=== PATIENT | female | born 2000 | race Caucasian/White ===

== ENCOUNTER 2019-02-28 20:27 | Emergency (ER) | payer SELFPAY | END 2019-02-28 20:59 | disposition left against medical advice (07) | LOC: ED 20:27 | DX: F41.9 Anxiety disorder, unspecified (principal); Z53.21 Procedure and treatment not carried out due to patient leaving prior to being seen by health care provider ==

== ENCOUNTER 2019-03-27 13:57 | Emergency (ER) | payer OTHER ==
--- NOTE | 2019-03-27 14:25 | Emergency Department Report ---
Blank Doc - Documentation Documentation: this is a 18-year-old female that presents with n/v. Stated is 13 weeks pregn ant. This initial assessment/diagnostic orders/clinical plan/treatment(s) is/are subject to change based on patient's health status, clinical progression and re- assessment by fellow clinical providers in the ED. Further treatment and workup at subsequent clinical providers discretion. Patient/guardians urged not to elope from the ED as their condition may be serious if not clinically assessed a nd managed. Initial orders include: 1- Patient sent to [facility] for further evaluation and treatment 2- labs
[2019-03-27] MEDS ORDERED: ZOFRAN ODT PO ONE (14:30)
--- NOTE | 2019-03-27 15:10 | Emergency Department Report ---
HPI - General Chief Complaint: Nausea/Vomiting/Diarrhea Time Seen by Provider: 03/27/19 14:23 - HPI HPI: Pt is a 18 yo G1 who comes to ER for recheck for her . She follows at [place] and saw the OB earlier this week. Every thing was fine per pt x she was treated for BV with flagyl x 1 dose. LMP 3-15-19. she has no abd pain and no vag bleeding. She has had intermittent nausea through the . Pre preg weight 120 and now 125. She ED Past Medical Hx - Past Medical History Previous Medical History?: No - Surgical History Past Surgical History?: No - Family History Family history: no significant - Social History Smoking Status: Never Smoker Substance Use Type: None - Medications Home Medications: Home Medications Medication Instructions Recorded Confirmed Last Taken Type Nitrofurantoin Campbell/M-Cryst 100 mg PO Q12HR #20 capsule 03/27/19 Unknown Rx [Macrobid CAP] Ondansetron [Zofran Odt] 4 mg PO Q8HR PRN #10 tab.rapdis 03/27/19 Unknown Rx ED Review of Systems ROS: Stated complaint: 13WKS /N/V Other details as noted in HPI Comment: All other systems reviewed and negative Physical Exam - Physical Exam Vital Signs: Vital Signs 03/27/19 14:23 Temperature 98.5 F Pulse Rate 95 H Respiratory 16 Rate Blood Pressure 106/60 [Left] O2 Sat by Pulse 98 Oximetry Physical Exam: WDWN patient in NAD VS per RN flow sheet Alert and oriented to person, place and time. S1-S2. No S3 or S4. No systolic or diastolic murmur. No JVD. No pitting edema. Lungs clear to auscultation bilaterally anteriorly and posteriorly. Abdomen soft nontender bowel sounds x5 Moves all extremities well. Mood and affect appropriate. ED Course Vital Signs 03/27/19 14:23 Temperature 98.5 F Pulse Rate 95 H Respiratory 16 Rate Blood Pressure 106/60 [Left] O2 Sat by Pulse 98 Oximetry ED Medical Decision Making - Lab Data Result diagrams: 03/27/19 15:00 03/27/19 17:02 - Radiology Data Radiology results: report reviewed, image reviewed - Medical Decision Making Lab Results 03/27/19 03/27/19 03/27/19 Range/Units 15:00 15:00 Unknown WBC 6.4 (4.5-11.0) K/mm3 RBC 3.88 (3.65-5.03) M/mm3 Hgb 11.3 (10.1-14.3) gm/dl Hct 34.1 (30.3-42.9) % MCV 88 (79-97) fl MCH 29 (28-32) pg MCHC 33 (30-34) % RDW 12.9 L (13.2-15.2) % Plt Count 220 (140-440) K/mm3 Lymph % (Auto) 28.0 (13.4-35.0) % Campbell % (Auto) 5.3 (0.0-7.3) % Eos % (Auto) 1.3 (0.0-4.3) % Baso % (Auto) 0.4 (0.0-1.8) % Lymph # 1.8 (1.2-5.4) K/mm3 Campbell # 0.3 (0.0-0.8) K/mm3 Eos # 0.1 (0.0-0.4) K/mm3 Baso # 0.0 (0.0-0.1) K/mm3 Seg Neutrophils % 65.0 (40.0-70.0) % Seg Neutrophils # 4.2 (1.8-7.7) K/mm3 Sodium 136 L (137-145) mmol/L Potassium 3.6 (3.6-5.0) mmol/L Chloride 103.7 (98-107) mmol/L Carbon Dioxide 22 (22-30) mmol/L Anion Gap 14 mmol/L BUN 6 L (7-17) mg/dL Creatinine 0.6 L (0.7-1.2) mg/dL Estimated GFR > 60 ml/min BUN/Creatinine Ratio 10 % Glucose 74 (65-100) mg/dL Urine Color Yellow (Yellow) Urine Turbidity Cloudy (Clear) Urine pH 7.0 (5.0-7.0) Ur Specific Dixon 1.012 (1.003-1.030) Urine Protein <15 mg/dl (Negative) mg/dL Urine Glucose (UA) Neg (Negative) mg/dL Urine Ketones Neg (Negative) mg/dL Urine Blood Neg (Negative) Urine Nitrite Neg (Negative) Urine Bilirubin Neg (Negative) Urine Urobilinogen < 2.0 (<2.0) mg/dL Ur Leukocyte Esterase Mod (Negative) Urine WBC (Auto) 25.0 H (0.0-6.0) /HPF Urine RBC (Auto) 16.0 (0.0-6.0) /HPF U Epithel Cells (Auto) 47.0 H (0-13.0) /HPF Vital Signs 03/27/19 14:23 Temperature 98.5 F Pulse Rate 95 H Respiratory 16 Rate Blood Pressure 106/60 [Left] O2 Sat by Pulse 98 Oximetry zofran odt taking po ambulatory VSS no abd pain no vag bleeding no cva tenderness has seen obgyn at [place] discussed Ca with MyOBGYN- no sign. Ca not signficant. DC home with dc plan of care and obgyn follow up. VSS. taking PO. no vomiting while in ER. ambulatory and not toxic on dc Critical care attestation.: If time is entered above; I have spent that time in minutes in the direct care of this critically ill patient, excluding procedure time. ED Disposition Clinical Impression: , Nausea & vomiting Disposition: DC-01 TO HOME OR SELFCARE Is pt being admited?: No Does the pt Need Aspirin: No Condition: Stable Instructions: (ED), Hyperemesis Gravidarum (ED) Additional Instructions: REST HYDRATE WELL MED ORDERED TODAY ALL LABS NORMAL TODAY TAKE YOUR DAILY VITAMIN FOLLOW UP WITH OBGYN WHO WILL MONITOR THE GROWTH OF THE BABY AND YOURSELF OVER THE - THIS IS WHY YOU NEED TO SEE ONE MD TO DO THIS. DIET TOLERATED ACTIVITY TOLERATED Prescriptions: Nitrofurantoin Campbell/M-Cryst [Macrobid CAP] 100 mg PO Q12HR #20 capsule Ondansetron [Zofran Odt] 4 mg PO Q8HR PRN #10 tab.rapdis PRN Reason: Vomiting Referrals: ZOHRA DIAS MD [Staff Physician] - 3-5 Days Time of Disposition: 15:42
[2019-03-27 15:14] LABS: Basophils % (Auto) 0.4 % (0.0-1.8); Eosinophils # (Auto) 0.1 K/mm3 (0.0-0.4); Eosinophils % (Auto) 1.3 % (0.0-4.3); Hematocrit 34.1 % (30.3-42.9); Hemoglobin 11.3 gm/dl (10.1-14.3); Lymphocytes # (Auto) 1.8 K/mm3 (1.2-5.4); Mean Corpuscular HGB Conc 33 % (30-34); Mean Corpuscular Volume 88 fl (79-97); Monocytes # (Auto) 0.3 K/mm3 (0.0-0.8); Monocytes % (Auto) 5.3 % (0.0-7.3); Platelet Count 220 K/mm3 (140-440); Red Blood Count 3.88 M/mm3 (3.65-5.03); Red Cell Distribution Width 12.9 % (13.2-15.2)
[2019-03-27 15:22] LABS: Bilirubin,Urine NEG (Negative); Blood,Urine NEG (Negative); Color,Urine Yellow (Yellow); Protein,Urine <15 mg/dL mg/dL (Negative); Urobilinogen,Urine < 2.0 mg/dL (<2.0)
[2019-03-27 15:31] LABS: BUN/Creatinine Ratio 10; Blood Urea Nitrogen 6 mg/dL (7-17); Hemolysis Index 2
[2019-03-27 15:44] LABS: Calcium 12.4 mg/dL (8.4-10.2)
[2019-03-27 16:47] VITALS: BP 102/62
--- NOTE | 2019-03-27 20:15 | Emergency Department Report ---
Blank Doc - Documentation Documentation: Nurse came to this provider wanted to know if there were are going to address her urinary tract infection. Patient does have 25 WBCs with moderate monos leukoesterase 47 epithelial cells. Patient is . Chest with Dr. Rivas since this patient is not my patient I am just provided that's on duty. Dr. Rivas said go ahead and treat her with Macrobid for her to follow up with her [employer]. This provided with a prescription for Macrobid 100 mg by mouth twice a day for 10 days and instructed for patient to follow up with her OB provider.
== END 2019-03-27 20:15 | disposition home or self-care (01) ==
LOC: ED 13:57
DX: O21.8 Other vomiting complicating pregnancy (principal); Z3A.13 13 weeks gestation of pregnancy
CPT/HCPCS: 36415; 80048; 81001; 82310; 84132; 84702; 85025; 87086; Q0162

== ENCOUNTER 2019-12-03 11:33 | Emergency (ER) | payer OTHER ==
[2019-12-03 13:45] VITALS: BP 125/63
--- NOTE | 2019-12-03 14:01 | Emergency Department Report ---
Chief Complaint: Skin Rash Stated Complaint: RING WORM Time Seen by Provider: 12/03/19 13:53 - HPI History of Present Illness: This 19 year old female presents to ED cc of itching dry darkish rash all over her abdomen, back and arms x 2 weeks Pt states she had similar sx 2 years ago - ROS Review of Systems: As noted in HPI - Exam Vital Signs: Vital Signs 12/03/19 13:43 Temperature 98.6 F Pulse Rate 100 H Respiratory 18 Rate Blood Pressure 125/63 O2 Sat by Pulse 98 Oximetry Physical Exam: SKIN: Warm and dry, hypo pigmented scaly rash noted on trunk,arms, No ulceration or induration present. MSE screening note: Focused history and physical exam performed. Due to findings the following was ordered: ED Medical Decision Making - Medical Decision Making 19-year-old female presents with rash consistent with pityriasis rosea. Discussed with patient that this is a self-limiting rash and to continue [id number] symptomatic relief with cortisone cream, Benadryl and calamine lotion. Vital signs are normal patient is in no acute distress. Also advised patient to follow-up with a group activities aide and near future in the next week I also advised patient to follow-up with her primary care physician. Patient states she understands instructions she is in no respiratory distress ED Disposition for MSE Clinical Impression: Pityriasis rosea Disposition: Z-07 MED SCREENING EXAM-LEFT Is pt being admited?: No Does the pt Need Aspirin: No Condition: Stable Instructions: Pityriasis rosea (ED) Additional Instructions: Make sure to follow up with the primary care physician as discussed. If you have any worsening symptoms or develop new symptoms please return to ED immediately. Referrals: [facility] [Outside] - 3-5 Days [facility] [Outside] - 3-5 Days Forms: Work/School Release Form(ED) Time of Disposition: 14:19
== END 2019-12-03 14:37 | disposition left against medical advice (07) ==
LOC: ED 11:33
DX: L42 Pityriasis rosea (principal)
CPT/HCPCS: 99281